=== PATIENT | female | born 1980 | race Caucasian/White ===

== ENCOUNTER 2024-02-07 06:00 | Inpatient (IN) | payer OTHER ==
[2024-02-07] MEDS: ELECTROLYTE-148 SOLN 500 ML IV ONE ×2 (06:30→07:22)
[2024-02-07 06:37] VITALS: BMI 25.4
[2024-02-07] MEDS: CITRIC ACID/SODIUM CITRATE 30 ML UNIT-DOSE CUP PO ONE (07:23)
[2024-02-07] MEDS ORDERED: FENTANYL CITRATE/PF 50 MCG/ML VIAL ONE (08:03)
[2024-02-07] MEDS ORDERED: morphine SULFATE/PF 1 MG/2 ML (2cc Syringe - QUVA) ONE (08:03)
[2024-02-07] MEDS ORDERED: PHENYLEPHRINE HCL 10 MG/1 ML SINGLE DOSE VIAL ONE (08:53)
[2024-02-07] MEDS ORDERED: ceFAZolin SODIUM 1 GM VIAL ONE (08:53)
[2024-02-07] MEDS ORDERED: KETOROLAC TROMETHAMINE 30 MG/1 ML VIAL ONE (08:53)
[2024-02-07] MEDS ORDERED: ONDANSETRON 4 MG/2 ML VIAL ONE (08:53)
[2024-02-07] MEDS ORDERED: OXYTOCIN 10 UNITS/ML VIAL ONE (08:53)
[2024-02-07] MEDS ORDERED: ACETAMINOPHEN 1000 MG/100 ML BAG IVPB PRN (09:40)
[2024-02-07] MEDS ORDERED: ACETAMINOPHEN INJECTION 100 ML IVPB ONE (10:31)
[2024-02-07] MEDS: ACETAMINOPHEN 1000 MG/100 ML BAG IVPB ONE (10:41)
[2024-02-07] MEDS ORDERED: OXYTOCIN 20 UNITS in 0.9% NS 20 UNIT/1,000 ML INFUS.BAG IV ONE (11:05)
[2024-02-07] MEDS: METHYLERGONOVINE MALEATE 0.2 MG/1 ML AMP IM PRN (11:08)
[2024-02-07] MEDS: OXYTOCIN 20 UNITS in 0.9% NS 20 UNIT/1,000 ML INFUS.BAG IV SCH (11:20)
[2024-02-07] MEDS: morphine SULFATE/PF 1 MG/2 ML (2cc Syringe - QUVA) SPIN ONE (11:22)
[2024-02-07] MEDS: DEXTROSE 5%-LACTATED RINGERS 1,000 ML IV SCH (11:22)
[2024-02-07] MEDS ORDERED: oxyCODONE HCL 5 MG TABLET PO PRN (21:36)
[2024-02-07] MEDS: IBUPROFEN 800 MG/8 ML IJ IVPB PRN (21:59)
[2024-02-08] MEDS: IBUPROFEN 600 MG TABLET (FP) PO PRN (06:52)
[2024-02-08] MEDS: SIMETHICONE 80 MG TAB.CHEW (FP) PO PRN (06:53)
[2024-02-08 08:42] LABS: BASO % 0.1 % (0-2.0); EOS % 0.7 % (0-4.5); HEMATOCRIT 33.9 % (32.4-45.2); HEMOGLOBIN 11.7 GM/dL (10.7-15.3); LYMPH % 11.5 % (8-40); MCH 32.2 pg (25.7-33.7); MCHC 34.6 g/dl (32.0-36.0); MEAN PLT VOLUME 8.7 fl (7.5-11.1); MONO % 6.8 % (3.8-10.2); NEUT % 80.9 % (42.8-82.8); PLATELET COUNT 177 10^3/uL (134-434); RBC 3.64 M/mm3 (3.60-5.2); RDW 13.3 % (11.6-15.6); WHITE BLOOD COUNT 15.1 K/mm3 (4.0-10.0)
[2024-02-08] MEDS: PRENATAL VITAMINS W/ FOLIC ACID TABLET (FP) PO SCH (09:33)
[2024-02-08] MEDS: FERROUS SO4 325 MG TABLET (FP) PO SCH (09:33)
[2024-02-08] MEDS ORDERED: BISACODYL 10 MG SUPP.RECT RC PRN (09:36)
[2024-02-08] MEDS: ACETAMINOPHEN 325 MG TABLET (FP) PO PRN (12:50)
[2024-02-08] MEDS: oxyCODONE HCL 5 MG TABLET PO PRN (15:13)
[2024-02-08] MEDS: SENNOSIDES/DOCUSATE COMBO (SENNA PLUS) TABLET (UD) PO PRN (21:00)
[2024-02-10 10:50] VITALS: BP 125/79; PULSE 79; RESP 20; TEMP 97.4
== END 2024-02-10 13:09 | disposition home or self-care (01) | DRG 540 ==
LOC: JLDR 06:00 → J3W 12:00
PROVIDERS: ADMIT Obstetrics & Gynecology; ATTEND Obstetrics & Gynecology
PROC: 10D00Z1 Extraction of Products of Conception, Low, Open Approach (ICD-10-PCS; principal; 2024-02-07)
PROC: 0UBMXZZ Excision of Vulva, External Approach (ICD-10-PCS; 2024-02-07)
DX: O32.1XX0 Maternal care for breech presentation, not applicable or unspecified (principal); O34.211 Maternal care for low transverse scar from previous cesarean delivery; N85.8 Other specified noninflammatory disorders of uterus; Z3A.39 39 weeks gestation of pregnancy; Z37.0 Single live birth
CPT/HCPCS: 36415; 85025; 88305-TC; 88307-TC; 94010; J0131